=== PATIENT | female | born 1955 | race Caucasian/White ===

== ENCOUNTER 2018-07-29 14:50 | Outpatient (RCR) | payer MEDICAID, SELFPAY | END 2018-07-29 23:59 | disposition home or self-care (01) | LOC: NS 14:50 | PROVIDERS: Family Provider Internal Medicine; PCP Internal Medicine; Visit Provider Nurse Practitioner Primary Care | DX: E66.9 Obesity, unspecified (principal); Z68.34 Body mass index [BMI] 34.0-34.9, adult; Z71.3 Dietary counseling and surveillance | CPT/HCPCS: 97802 ==

== ENCOUNTER 2019-05-05 11:12 | Day surgery (SDC) | payer MEDICAID, SELFPAY ==
--- NOTE | 2019-05-04 15:03 | PCM.HP.BLA ---
History and Physical Date of Admission: 05/05/19 Shreya Bryan 1955 ? ? REFERRING PHYSICIAN: Marely Charles MD ? CHIEF COMPLAINT: Chest Pain ? HPI: The patient is a 63 year old female presents with complaint of severe epigastric abdominal pain. Also complaint of bloating, increased intestinal gas and delayed gastric emptying. Also complains of food sometimes being stuck in the throat area. She states that she has to use bread to swallow items when it gets stuck. Denies history of PUD. Had gallbladder removed 10 years ago, this does not feel like gallbladder pain. Epigastric area feels like a knot in there. Feels like ?boiling, bubbling in throat?, can only eat grapes.? Feels so ?bloated and gassed up?, It?s bad ? can?t describe it? Some acid indigestion and heartburn Denies emesis, has nausea. Denies constipation or diarrhea. Denies melena. Denies blood in stools. Has lost 7#. Denies NSAIDs use. Denies ETOH use. ? ? PAST MEDICAL HISTORY ? Complication of anesthesia ? ? Diabetes (HCC) ? ? oral med and exercise controlled ? GERD (gastroesophageal reflux disease) ? ? Hypertension ? ? Incisional hernia 07/15/2015 ? Mental disorder ? ? Rectovaginal fistula 12/09/2010 ? Umbilical hernia 07/15/2015 ? Uterine prolapse ? History of - May 2018 ? ? PAST SURGICAL HISTORY ? ANTER COLPORRHAPHY,BLAD/VAGINA ? 11/08/10 ? W/ mesh- Elevate ? APPENDECTOMY ? @ 27yrs of age ? HERNIA REPAIR W/MESH ? 07/15/15 ? incisional and umbilical ? ILEOSTOMY ? 12/2010 ? LIGATE FALLOPIAN TUBE ? 81 ? Tubal ligation ? PAST SURGICAL HISTORY OF ? 2004 ? racheal alcaraz ? PAST SURGICAL HISTORY OF ? 2010 ? fistua repair ? POST COLPORRHAPHY,RECTUM/VAGINA ? 11/08/10 ? posterior repair ? REDUCTION OF LARGE BREAST ? 2002 ? REPAIR ANAL FISTULA,RECT ADV FLAP ? 11/11/10 ? REPAIR INCIS HERNIA W MESH ? 07/15/2015 ? REPAIR INCISIONAL HERNIA,REDUCIBLE ? 07/15/2015 ? VAG HYST,RMV TUBE/OVARY ? 11/08/10 ? TVH/BSO prolapse, pressure, ov. cyst VATS procedure for pneumothorax - [facility] ? ? Current Outpatient Medications ? nortriptyline (PAMELOR) 75 mg capsule Take 1 capsule by mouth daily at bedtime. ? pregabalin (LYRICA) 150 mg capsule Take 1 capsule by mouth three times daily for 90 days. As directed ? famotidine (PEPCID) 20 mg tablet Take 1 tablet by mouth at bedtime as needed. ? miconazole (MONISTAT-DERM,CATALINA) 2 % cream Apply 1 application to affected area twice daily. ? esomeprazole (NEXIUM) 40 mg capsule Take 1 capsule by mouth DAILY (6 AM). ? insulin glargine (BASAGLAR KWIKPEN U-100 INSULIN) 100 unit/mL (3 mL) inpn Inject 45 Units subcutaneously daily at ? citalopram (CELEXA) 40 mg tablet Take 1 tablet by mouth once daily. ? metFORMIN ER (GLUCOPHAGE XR) 500 mg 24 hr tablet Take 2 tablets by mouth twice daily. ? simvastatin (ZOCOR) 40 mg tablet Take 1 tablet by mouth daily at bedtime. ? bifidobacteri bifid.and longum (FLORAJEN BIFIDOBLEND) 460 mg (9-1 bill.cell) cap Take 1 capsule by mouth once daily. ? triamcinolone acetonide (KENALOG) 0.1 % cream Apply 1 application to affected area three times daily. Apply sparingly to ? buPROPion SR (ZYBAN SR; WELLBUTRIN SR) 150 mg 12 hr tablet Take 1 tablet by mouth twice daily. ? insulin lispro (ADMELOG SOLOSTAR U-100 INSULIN) 100 unit/mL inpn Inject insulin three times daily at first bite of food. 10 ? benzonatate (TESSALON PERLES) 100 mg capsule Take 1 capsule by mouth three times daily as needed for Cough. ? fluticasone (FLONASE) 50 mcg/actuation nasal spray Use 2 Sprays in each nostril once daily. Rinse mouth after use. ? Insulin [place], Disposable, (PEN NEEDLES) 31 gauge x 1/4 ndle Use one needle for each dose, 4 x/day ? empagliflozin (JARDIANCE) 25 mg tablet Take 1 tablet by mouth once daily. ? carvedilol (COREG) 6.25 mg tablet Take 1 tablet by mouth twice daily with meals. ? methylPREDNISolone (MEDROL DOSE-PACK) 4 mg Dose-Pack As Instructed per package ? furosemide (LASIX) 20 mg tablet Take 1 tablet by mouth once daily. As directed for swelling in legs ? aspirin, enteric coated (ADULT ASPIRIN REGIMEN) 81 mg EC tablet Take 1 tablet by mouth once daily. ? melatonin 10 mg tab Take by mouth. ? ALLERGIES: Adhesive Tape (Rosins); Cholestyramine; Prednisone; Ultram [Tramadol Hcl]; Wellbutrin [Bupropion] ? PERSONAL HISTORY: Tobacco Use ? Smoking status: Never Smoker ? Smokeless tobacco: Never Used ? Tobacco comment: Patient states that she tried smoking one time. Substance Use Topics ? Alcohol use: No ? Drug use: No ? FAMILY HISTORY ? Diabetes Father ? ? other (sudden [Other]) Mother ? ? Hypertension Father ? ? other (lung cancer [Other]) Father ? ? smoker ? Breast Cancer Sister 53 ? other (vaginal cancer [Other]) Sister 48 ? Alcohol/Drug Sister ? ? Alcohol/Drug Brother ? ? ? REVIEW OF SYSTEMS: General: The patient denies fatigue, denies weight loss, denies weight gain, denies feeling hot, and denies feelings of cold. Eyes: The patient denies glaucoma, denies eye injury/surgery, wears glasses or contacts. Ear/Nose/Throat: The patient denies allergies, denies hayfever, denies ear infections, and denies bloody noses. Cardiovascular: The patient denies chest pain, notes heart disease, denies high blood pressure,denies cardiac stent, notes prior heart attack, denies irregular heart beat, denies high cholesterol, denies poor circulation, denies heart failure, other cardiac issues, denies claudication, denies cold feet, denies peripheral arterial stent. Respiratory: The patient denies tuberculosis, denies pneumonia, denies frequent cough, denies pulmonary embolism, denies shortness of breath, and denies coughing up blood. Gastrointestinal: The patient denies difficulty swallowing, notes acid reflux, denies ulcers, denies vomiting, denies jaundice/hepatitis, denies gallbladder problems, denies black or tarry stools, notes hemorrhoids, denies bleeding from rectum, denies diverticulitis, denies constipation, denies diarrhea, denies loss of stool control, and notes hernias. Kidney/Bladder: The patient denies kidney stones, notes urine infections, and denies bloody urine. Skin: The patient denies a history of skin cancer, denies bleeding/changing moles, and denies a history of skin rash. Neurologic: The patient denies a history of epilepsy/convulsions, denies headaches, denies head/spinal injuries, and denies stroke/TIA. Psychiatric: The patient denies psychiatric medications, denies depression, and denies voices, denies substance abuse. Endocrine: The patient denies thyroid disorders, notes diabetes, and denies hormonal problems. Hematologic: The patient denies a history of bruising, denies bleeding, and denies anemia, denies blood clots. Infections: The patient denies a history of measles and mumps, denies rheumatic fever, and denies sexually transmitted diseases. Musculoskeletal: The patient denies back pain/injury, denies back problems, denies sciatica, denies knee/foot trouble, denies arthritis, or denies gout. ? PHYSICAL EXAMINATION: General: The patient is 63 year old female, well nourished, well hydrated in no acute distress. The patient is oriented to time, place, and person. VITALS: Blood pressure 132/76, pulse 100, temperature 36.3 ?C (97.3 ?F), temperature source Temporal Artery, resp. rate 20, height 161.3 cm (5' 3.5), weight 88.5 kg (195 lb), SpO2 98 %. Body mass index is 34 kg/m?. Head ? Normocephalic. EOM intact with sclera clear and no icterus noted. Mouth with mucus membranes moist. Neck - supple with no jugular venous distention noted. Trachea is midline. Lungs ? clear to auscultation. Normal breath sounds. No rales/rhonchi/wheezing noted. No labored breathing noted, such as retractions. No cough heard. Heart ? normal S1 and S2 auscultated. No rubs/clicks/murmurs noted. Regular rate. Abdomen ? soft and benign. Normal bowel sounds. Difficult to determine if any masses or organomegaly due to body habitus. Extremities ? no calf tenderness noted. No pitting edema noted. Skin ? normal skin integrity. Neurological ? gait normal, no focal deficits noted. Psych ? calm and appropriate ? ? IMPRESSION: epigastric abdominal pain, heartburn ? PLAN: I have discussed the above with the patient. I have offered EGD, possible biopsies for evaluation I have explained the procedure to the patient. I have counseled the patient as to the risks of the procedure, including but not limited to: infection, bleeding, perforation of the GI tract, injury to any intraabdominal organs such as the liver/spleen, inability to complete the procedure, complications of anesthesia, etc. ? the patient understands. The patient wishes to proceed. I have answered all questions to the patient?s satisfaction and the patient has no further questions. . Diagnoses: (R10.13) Epigastric abdominal pain (primary encounter diagnosis) (R12) Heartburn (R14.0) Abdominal bloating Return to Clinic: The patient is instructed to follow-up with me after the procedure as per needed.
[2019-05-05] VITALS (7 sets, daily range): BP systolic 120–139; BP diastolic 63–73; PULSE 95–103; RESP 15–18; TEMP 36.5–37.4; O2SAT 95–98; BMI 33.8
--- NOTE | 2019-05-05 | IMM_PTH ---
PATIENT: DEMIAN BOGGS LOC: EN U#:[id number] AGE/SX: 63/F ROOM: RE05/05/[address]: Dr. Demian Donovan MD : 1955 BED: DIS: 05/05/2019 SPEC #: [id number] RECD: 05/05/19 15:29 STATUS: COSMO REQ #: [id number] KERON: 05/05/19 00:[address]: Demian Donovan DEPT: IMMUNOHISTOCHEMISTRY RECD BY: Tia Young ENTERED: 05/05/19 15:29 SP TYPE: IMMUNO OTHR DR: Dr. Marely Charles MD Tissues: Gastric mucous membrane Procedures: H Pylori (initial) PHYSICIAN & [place] [id number] SPECIMEN INFORMATION: Tissue Source: B. Antrum biopsy Clinical Info: Epigastric abdominal pain Specimen Number: [id number] CPT code: 48060 METHODOLOGY: Deparaffinized sections of prefer/formalin-fixed tissue or PAP/DQ stained slides are incubated with monoclonal/polyclonal antibodies/oligonucleotide probes. Localization is made via biotin free immunoperoxidase method. Appropriate controls are performed and reacted as expected. Results on target cell population are indicated in the following table: RESULTS: ANTIBODY / CLONE RESULT Block B H Pylori (polyclonal) negative These tests were developed and their performance characteristics determined by [facility]. They may not have been cleared or approved by the U.S. Food and Drug Administration. The FDA has determined that such clearance or approval is not necessary. INTERPRETATION: B. Gastric antrum, biopsy: Negative for Helicobacter pylori organisms. AM:sharla 05/06/19
[2019-05-05] MEDS: Lactated Ringers 1,000 ML 75 ML IV (07:00)
[2019-05-05 11:50] LABS: Bedside Glucose 159 mg/dL (70-110)
--- NOTE | 2019-05-05 12:30 | EGD_PTH ---
PATIENT: DEMIAN BOGGS LOC: EN U#:[id number] AGE/SX: 63/F ROOM: RE05/05/[address]: Dr. Demian Donovan MD : 1955 BED: DIS: 05/05/2019 SPEC #: [id number] RECD: 05/05/19 14:02 STATUS: COSMO RETA #: [id number] KERON: 05/05/19 12:[address]: Demian Donovan DEPT: SURGICAL PATHOLOGY RECD BY: Truman Brown ENTERED: 05/05/19 14:27 SP TYPE: EGD BIOPSY OT DR: Dr. Marely Charles MD Tissues: A - Duodenum, NOS B - Gastric mucous membrane C - Gastric mucous membrane D - Gastric mucous membrane Procedures: Surgery Specimen Level IV HEADER OPERATION: EGD ([facility] [place]) PRE-OP DIAGNOSIS: Epigastric abdominal pain TISSUE SUBMITTED: A. Duodenum biopsy, B. Antrum biopsy, C. Gastric polyp, D. GE junction biopsy MICROSCOPIC DIAGNOSIS A. Duodenum, biopsy: Minimal nonspecific chronic inflammation. B. Gastric antrum, biopsy: Mild chronic gastritis. C. Gastric polyp, biopsy: Fragments of fundic gland polyp. D. Delta, gastroesophageal junction, biopsy: Mild chronic inflammation. No evidence of intestinal metaplasia. AM:dino 05/06/19 COMMENT B. The results of immunohistochemistry for Helicobacter pylori will be reported separately ([id number]). Alcian blue/PAS stain with matched control supports the above diagnosis. MICROSCOPIC DESCRIPTION Slides are reviewed. GROSS DESCRIPTION A. Received is one container labeled with the patient name and designated duodenum biopsy. The specimen consists of two irregular fragments of light kwan soft tissue that in aggregate measure 0.5 x 0.5 x 0.2 cm. The specimen is totally submitted in one cassette. B. Received is one container labeled with the patient name and designated antrum biopsy. The specimen consists of two irregular fragments of light kwan soft tissue that in aggregate measure 0.7 x 0.3 x 0.1 cm. The specimen is totally submitted in one cassette. C. Received is one container labeled with the patient name and designated gastric polyp. The specimen consists of multiple irregular fragments of light kwan soft tissue that in aggregate measure 1.5 x 1 x 0.1 cm. The specimen is totally submitted in one cassette. D. Received is one container labeled with the patient name and designated GE junction. The specimen consists of two irregular fragments of light kwan soft tissue that in aggregate measure 0.3 x 0.3 x 0.1 cm. The specimen is totally submitted in one cassette. / AM:sp 05/05/19 TC: 3 CPT: 86669 x4, 77522 x1
--- NOTE | 2019-05-12 11:54 | OP.EGD_ITS ---
Patient Name: Shreya Bryan Procedure Date: 05/05/2019 12:14 PM Date of : 1955 Age: 63 Procedure: Upper GI endoscopy Indications: Epigastric abdominal pain, Heartburn Providers: Shreya Donovan MD Referring MD: Marely Charles Medicines: See the Anesthesia note for documentation of the administered medications Patient Profile: Refer to note in patient chart for documentation of history and physical. Complications: No immediate complications. Procedure: Pre-Anesthesia Assessment: - see anesthesia note After obtaining informed consent, the endoscope was passed under direct vision. Throughout the procedure, the patient's blood pressure, pulse, and oxygen saturations were monitored continuously. The gastroscope was introduced through the mouth, and advanced to the second part of duodenum. The upper GI endoscopy was accomplished without difficulty. The patient tolerated the procedure well. Scope In: 12:22:35 PM Scope Out: 12:31:40 PM Total Procedure Duration Time 0 hours 9 minutes 5 seconds Findings: Localized mildly erythematous mucosa without active bleeding and with no stigmata of bleeding was found in the duodenal bulb. Biopsies were taken with a cold forceps for histology. Estimated blood loss was minimal. Striped mildly erythematous mucosa without bleeding was found in the gastric antrum. Biopsies were taken with a cold forceps for histology. Estimated blood loss was minimal. The Z-line was irregular. Biopsies were taken with a cold forceps for histology. Impression: - Erythematous duodenopathy. Biopsied. - Erythematous mucosa in the antrum. Biopsied. - Z-line irregular. Biopsied. Recommendation: - Discharge patient to home (ambulatory). - Resume previous diet. - Continue present medications. - Await pathology results. - Return to physician mailroom assistant in 1 week. Procedure Code(s): --- Professional --- 22957, Esophagogastroduodenoscopy, flexible, transoral; with biopsy, single or multiple Diagnosis Code(s): --- Professional --- K31.89, Other diseases of stomach and duodenum K22.8, Other specified diseases of esophagus R10.13, Epigastric pain R12, Heartburn CPT copyright 2017 [employer]. All rights reserved. The codes documented in this report are preliminary and upon label coder review may be revised to meet current compliance requirements. MD Shreya Ferguson MD 05/12/2019 11:54:03 AM This report has been signed electronically. Number of Addenda: 0 Note Initiated On: 05/05/2019 12:14 PM
== END 2019-05-05 13:36 | disposition home or self-care (01) ==
LOC: EN 11:13 → AC 11:14
PROVIDERS: Family Provider Internal Medicine; PCP Internal Medicine; Referring Provider Surgery; Visit Provider Surgery
PROC: 0DJ08ZZ Inspection of Upper Intestinal Tract, Via Natural or Artificial Opening Endoscopic (ICD-10-PCS; CPT 43235; principal; 2019-05-05 12:25)
DX: K29.50 Unspecified chronic gastritis without bleeding (principal); K31.7 Polyp of stomach and duodenum; K31.89 Other diseases of stomach and duodenum; K22.8 Other specified diseases of esophagus; E11.9 Type 2 diabetes mellitus without complications; Z79.4 Long term (current) use of insulin; K21.9 Gastro-esophageal reflux disease without esophagitis; I10 Essential (primary) hypertension; I25.2 Old myocardial infarction; Z88.8 Allergy status to other drugs, medicaments and biological substances
CPT/HCPCS: 43239; 82962; 88305; 88342; J7050; J7120; J2405

== ENCOUNTER 2021-06-09 11:11 | Emergency (ER) | payer MEDICARE, SELFPAY ==
[2021-06-09 11:12] VITALS: BP 182/100; PULSE 90; RESP 16; TEMP 36.1; O2SAT 95; BMI 36.1
--- NOTE | 2021-06-09 11:58 | CT_ITS ---
STUDY: CT ABDOMEN AND PELVIS WITH CONTRAST REASON FOR EXAM: Female, 65 years old. Abdominal pain -- IV PO Contrast. Six-week history of left upper quadrant pain. RADIATION DOSAGE (If Supplied By Facility): CTDIvol = ( 16.31 ) mGy, DLP = ( 1190.33 ) mGycm TECHNIQUE: Transaxial images were obtained from the dome of the diaphragm to the symphysis pubis with oral contrast. Oral and amp; IV Gastrografin and amp; 100mL Isovue-300 was administered. Sagittal and coronal images were reconstructed. Individualized dose optimization techniques were used for this CT. COMPARISON: None. FINDINGS: Calcific plaques seen in the left lower lobe. Minimal scarring at the left lung base. Prior CABG. There is a 3.1 sided by 2.3 cm calcified nodule in the inferior aspect of the right breast. There is decreased attenuation of the liver consistent with steatosis. There are surgical clips in the gallbladder fossa consistent with a prior cholecystectomy. Normal spleen. Normal pancreas. Normal bilateral adrenal glands. Normal right kidney. Normal left kidney. Mild degree of nonspecific bilateral perinephric stranding. There is a small hiatal hernia. Normal small intestine. Moderate amount of fecal material is seen in the right hemicolon. There are scattered colonic diverticula consistent with diverticulosis. The appendix is visualized and appears normal. There is scattered atherosclerotic calcification of the abdominal aorta, without a demonstrated aneurysm. Normal inferior vena cava. Normal retroperitoneum. Normal urinary bladder. There is absence of the uterus consistent with a prior hysterectomy. Evidence of prior anterior abdominal hernia repair with mesh. There are degenerative changes of the visualized lumbar spine. CT/Abdomen/Pelvis WITH Contrast IMPRESSION: Fatty infiltration of the liver. Calcified left pleural plaques. Electronically Signed: Juan Cavazos MD at 14:02 EST , Service support ,
--- NOTE | 2021-06-09 11:58 | EKG12_ITS ---
Test Reason : ABD PAIN Blood Pressure : / mmHG Vent. Rate : 086 BPM Atrial Rate : 086 BPM P-R Int : 184 ms QRS Dur : 114 ms QT Int : 384 ms P-R-T Axes : 053 -31 101 degrees QTc Int : 459 ms Normal sinus rhythm Left axis deviation Incomplete left bundle branch block Abnormal ECG Confirmed by EVELYN VANESSA, SRIKANTH ([id number]), book or script editor KEY HOOPER ([id number]) on 06/13/2021 11:23:50 AM Referred By: DEEP Confirmed By:SRIKANTH RIVAS MD
--- NOTE | 2021-06-09 12:02 | ED.VIS.GI ---
HPI HPI - GI History of Present Illness Chief Complaint: Abd Pain Informant: patient Abdominal Pain/Flank Pain Onset: Weeks (6) Context: Gradual Onset Timing: Continuous Quality: Aching, Burning, Cramping and Sharp Location: LUQ Worsened by: Nothing Relieved by: - (Passing gas, having bowel movement) Nausea/Vomiting/Emesis GI Symptom: Positive for Nausea; Negative for Vomiting Diarrhea/Melena/Hematochezia GI Symptom: Negative for Diarrhea, Melena and Hematochezia Associated Symptoms Associated Symptoms: Negative for Dysuria and Hematuria Narrative Narrative: Patient presents with left upper quadrant abdominal pain that has been constant for the past 6 weeks. Patient describes her pain as sharp, burning, aching, and stabbing. Patient states it is over the left upper quadrant. Patient states it radiates into her back. Patient states initially it was better with passing gas and having a bowel movement. Patient states this does not seem to help as much anymore. Patient admits to some nausea but denies any vomiting. Patient denies any diarrhea, melena, or hematochezia. Patient denies any dysuria or hematuria. Patient denies any fevers or chills. [facility], [facility] Medical History (Updated 06/09/21 @ 14:[address] 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 DM2 (diabetes mellitus, type 2) Essential (primary) hypertension HLD (hyperlipidemia) Home Medications citalopram 40 mg PO DAILY 07/30/14 [History Last Taken Unknown] esomeprazole magnesium [Nexium] 40 mg PO QHS 07/30/14 [History Last Taken Unknown] glyburide 20 mg PO BIDCM 07/30/14 [History Last Taken Unknown] pregabalin [Lyrica] 100 mg PO BID PRN PRN 07/30/14 [History Last Taken Unknown] insulin lispro [Humalog] See Protocol SQ PRN PRN 07/12/15 [History Last Taken Unknown] lisinopril 40 mg PO QHS 07/12/15 [History Last Taken Unknown] phenazopyridine [Pyridium] 200 mg PO BID PRN PRN #10 tab 08/18/15 [Rx Last Taken Unknown] Allergy/AdvReac Type Severity Reaction Status Date / Time adhesive tape AdvReac STICKS TO Verified 05/05/19 11:26 PT bupropion HCl AdvReac MAKES PT Verified 05/05/19 11:26 [From Wellbutrin] MEAN midazolam [From Versed] AdvReac Unknown Verified 05/05/19 11:26 prednisone AdvReac INSOMNIA Verified 05/05/19 11:26 tramadol AdvReac Other Verified 06/09/21 11:14 Surgical History (Updated 06/09/21 @ 12:[address] Kory Carrington DO) History of coronary artery bypass graft Hx of appendectomy Hx of bilateral breast reduction surgery Hx of cholecystectomy Social History Smoking Status: Never smoker ROS ROS ED Constitutional Constitutional ED: Denies chills or fever(s) Eyes Eyes: Denies blurry vision or change in vision ENT ENT ED: Denies rhinorrhea or sore throat Cardiovascular Cardiovascular: Denies chest pain or palpitations Respiratory/Chest Respiratory/Chest: Denies cough or dyspnea Gastrointestinal Gastrointestinal: Reports abdominal pain and nausea; Denies vomiting Genitourinary Genitourinary ED: Denies dysuria or hematuria Musculoskeletal Musculoskeletal: Reports back pain; Denies neck pain Integumentary Denies abscess or rash Neurologic Neurologic: Reports weakness; Denies headache(s) Allergic/Immunologic Allergic/Immunologic ED: Denies mouth swelling or urticaria EXAM Physical Exam Const Vital Signs: 06/09/21 11:12 06/09/21 13:50 06/09/21 14:48 Temperature 97 F L Temperature Source Temporal Pulse Rate 90 74 72 Respiratory Rate 16 16 15 Blood Pressure 182/100 H 158/69 H 134/69 H Blood Pressure Mean 127 98 Pulse Ox 95 96 96 Oxygen Delivery Method Room Air Room Air Positive well nourished, well developed and obese General Appearance ED: well developed Nutritional Appearance: obese HEENT Reports moist mucous membranes Neck supple and no JVD Resp normal respiratory effort and clear to auscultation bilaterally Cardio regular rate, regular rhythm and no murmurs GI normal to inspection, nondistended, normoactive bowel sounds Palpation: soft and tender LUQ; Negative for guarding or rebound tenderness present Extremity normal to inspection General Extremety ED: Negative for edema or tenderness General Extremity: Negative for edema Neuro oriented x3, CN's II-XII intact bilaterally and no sensory deficits noted Sensorium / Orientation: alert Motor Exam: strength 5/5 throughout Psych mental status grossly normal Skin no rashes or lesions noted MDM MDM MDM Narrative Medical decision making narrative: Patient was given IV fluids, morphine, and Zofran. EKG was obtained. On my interpretation, it showed a normal sinus rhythm with a rate of 86. [place] interval, QRS interval, and QTc intervals were all normal. There is left axis deviation at -31. There are nonspecific ST-T wave changes. CBC was within normal limits. Comprehensive metabolic profile was normal with the exception of an elevated glucose of 284. Anion gap was normal. Lipase was normal. High-sensitivity troponin was normal at 11. Urinalysis shows positive nitrates but negative leukocyte esterase and 0-5 white blood cells. There is 3+ bacteria. CT scan of the abdomen pelvis was obtained. There is fatty infiltration of the liver. There are calcified left pleural plaques. There is no acute process noted. Patient was advised of her findings. Patient was instructed to follow-up with her primary care physician and pain management physician in 5 to 7 days. Patient understood and was agreeable with the plan. All questions were answered. Lab Data Attestation: I reviewed the patient's lab results. Labs: Laboratory Results - last 24 hr 06/09/21 06/09/21 06/09/21 11:31 11:38 11:38 WBC 8.1 RBC 4.45 Hgb 12.0 Hct 37.3 MCV 83.8 MCH 27.0 MCHC 32.2 RDW Std Deviation 44.7 H RDW Coeff of Andrea 14.6 Plt Count 275 MPV 11.6 Immature Gran % (Auto) 1.900 H Neut % (Auto) 60.5 Lymph % (Auto) 28.4 [place] % (Auto) 6.1 Eos % (Auto) 2.7 Baso % (Auto) 0.4 Absolute Neuts (auto) 4.9 Absolute Lymphs (auto) 2.29 Nucleated RBC % 0.2 Sodium 133 L Potassium 4.3 Chloride 95 L Carbon Dioxide 30.0 Anion Gap 8 BUN 15 Creatinine 0.83 Estim Creat Clear Calc 55.90 Est GFR (MDRD) Af Amer 89 Est GFR (MDRD) Non-Af 73 BUN/Creatinine Ratio 18.1 Glucose 284 H Calcium 8.7 Total Bilirubin 0.50 AST 16 ALT 24 Alkaline Phosphatase 96 Troponin I High Sens 11 Total Protein 7.2 Albumin 3.3 Globulin 3.9 Albumin/Globulin Ratio 0.8 L Lipase 54 L Urine Color Yellow Urine Clarity Clear Urine pH 6.5 Ur Specific [place] 1.015 Urine Protein 15 H Urine Glucose (UA) 1000 H Urine Ketones Negative Urine Occult Blood Negative Urine Nitrite Positive H Urine Bilirubin Negative Urine Urobilinogen Normal Ur Leukocyte Esterase Negative Urine RBC 0 SEEN Urine WBC 0-5 SEEN Ur Squamous Epith Cells 0 SEEN Urine Bacteria 3+ Urine Mucus 0 SEEN Radiography Diagnostic Testing: Clinical Impression(s) from Imaging Studies Abdomen/Pelvis CT 06/09/21 11:58 IMPRESSION: Fatty infiltration of the liver. Calcified left pleural plaques. Electronically Signed: Juan Cavazos MD at 14:02 EST , Service support , EKG Initial EKG: Attestation: I personally reviewed and interpreted this EKG as follows: Interpretation: Sinus Rhythm (86) and Non-Specific ST Changes Prior EKG tracings: available for review Prior: Unchanged (08/18/2015) Discharge Plan Triage Chief Complaint: Abd Pain ED Provider: Kory Carrington Dx/Rx/DC Orders Clinical Impression: Abdominal pain Instructions: ED Abdominal Pain Unkn Cause Fem Prescriptions: No Action citalopram 40 MG tablet 40 mg PO DAILY RF: 0 glyburide 5 MG tablet 20 mg PO BIDCM RF: 0 esomeprazole magnesium [Nexium] 40 MG capsule 40 mg PO QHS RF: 0 pregabalin [Lyrica] 100 MG capsule 100 mg PO BID PRN PRN (Reason: Pain) RF: 0 insulin lispro [Humalog U-100 Insulin] 100 UNIT/ML Ml See Protocol unit SQ PRN PRN (Reason: FOR BLOOD SUGAR) RF: 0 lisinopril 40 MG tablet 40 mg PO QHS RF: 0 phenazopyridine [Pyridium] 200 MG tablet 200 mg PO BID PRN PRN (Reason: Pain) Qty: 10 RF: 0 Primary Care Provider: Marely Charles Referrals: Marely Charles MD [Primary Care Provider] - 3-5 Days Disposition Disposition: Home, Self Care Discharge Date/Time: 06/09/21 14:51
[2021-06-09] MEDS: Ondansetron 4 MG/2 ML Vial IV (12:07)
[2021-06-09] MEDS: Morphine 4 MG/ML Syringe IV (12:08)
[2021-06-09] MEDS: 0.9% Normal Saline 1,000 ML 1000 ML IV (12:08)
[2021-06-09 12:23] LABS: Absolute Lymphocyte Count 2.29 X10^3/uL (0.83-4.51); Absolute Neutrophil Count 4.9 X10^3/uL (2.0-7.7); Basophil# 0.03 X10^3/uL; Basophil% 0.4 % (0-1); Eosinophil# 0.22 X10^3/uL; Eosinophils% 2.7 % (0-5); Hematocrit 37.3 % (37-47); Lymphocyte # 2.29 X10^3/ul (0.83-4.51); Lymphocyte % 28.4 % (19-41); Mean Corp Hgb Conc 32.2 g/dL (32-36); Mean Corpuscular Volume 83.8 fL (81-99); Mean Platelet Vol. 11.6 fl (6.2-12.0); Monocyte# 0.49 X10^3/uL; Monocyte% 6.1 % (0-10); NRBC Flagged by Analyzer 0.2 % (0-5); Neutrophil # 4.87 X10^3/uL (2.7-7.7); Neutrophil % 60.5 % (47-70); Platelet Count 275 K/mm3 (150-450); RBC Distribution Width CV 14.6 % (11.6-14.6); RBC Distribution Width SD 44.7 fl (35.1-43.9); Red Blood Count 4.45 M/mm3 (4.2-5.4); White Blood Count 8.1 K/mm3 (4.4-11.0)
[2021-06-09 12:38] LABS: ALB/GLOB Ratio 0.8 RATIO (0.9-2.4); AST(SGOT) 16 U/L (15-37); Alanine Aminotransfer ALT/SGPT 24 U/L (13-56); Albumin, Serum 3.3 g/dL (3.2-5.0); Alkaline Phosphatase 96 U/L (45-117); Anion Gap 8 (5-15); BUN 15 mg/dL (7-18); BUN/Creat Ratio 18.1 RATIO (10-20); Calcium,Total 8.7 mg/dL (8.5-10.1); Chloride 95 mmol/L (98-107); Creatinine, Serum 0.83 mg/dL (0.55-1.02); EST Glomerular Filtration Rate 73 mL/min (>60); Est Glom Filt Rate - Afr Amer 89 mL/min (>60); Globulin 3.9 g/dL (2.2-4.2); Glucose 284 mg/dL (74-106); Lipase 54 U/L (73-393); Potassium 4.3 mmol/L (3.5-5.1); Protein, Total 7.2 g/dL (6.4-8.2); Sodium Level 133 mmol/L (136-145); Troponin-I HS 11 pg/mL (3.0-54.0)
[2021-06-09 12:45] LABS: Mucous, Urine 0 SEEN /hpf (<or=2+); Red Blood Cells-Urine 0 SEEN /hpf (0-5); Squamous Epithelial Cells - UA 0 SEEN /hpf (5-10)
[2021-06-09 12:46] LABS: Color, Urine Yellow (Yellow); Glucose, Dipstick 1000 mg/dl (Normal); Ketone-Dipstick Negative (Negative); Leukocyte Esterase-Dipstick Negative /ul (Negative); Nitrite-Dipstick Positive (Negative); Occult Blood-Urine Negative /ul (Negative); Protein-Dipstick 15 mg/dl (Negative); Specific Gravity, Urine 1.015 (1.002-1.030); Urine Bilirubin Dipstick Negative (Negative); Urine Clarity Clear (Clear); Urine Urobilinogen Normal (Normal); Urine pH 6.5 (5.0 - 8.0)
[2021-06-09 12:58] LABS: Bacteria 3+ /hpf (None Seen); White Blood Cells 0-5 SEEN /hpf (0-5)
[2021-06-09 13:50] VITALS: BP 158/69; PULSE 74; RESP 16; O2SAT 96
[2021-06-09 14:48] VITALS: BP 134/69; PULSE 72; RESP 15; O2SAT 96
== END 2021-06-09 14:51 | disposition home or self-care (01) ==
PROVIDERS: Emergency Provider Emergency Medicine; PCP Internal Medicine; Visit Provider Emergency Medicine
DX: R10.12 Left upper quadrant pain (principal); E66.9 Obesity, unspecified
CPT/HCPCS: 74177; 80053; 81001; 83690; 84484; 85025; 93005; 96361; 96374; 96375; 99284; J7030; Q9967; A4216; J2405